=== PATIENT | male | born 1995 ===

== ENCOUNTER 2017-03-04 03:38 | Emergency (ER) | payer MEDICAID ==
[2017-03-04 04:04] VITALS: BP 126/68; PULSE 89; RESP 18; TEMP 97; O2SAT 98
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
== END 2017-03-04 07:05 | disposition home or self-care (01) ==
LOC: H.ER 03:38
DX: S09.90XA Unspecified injury of head, initial encounter (principal); S80.212A Abrasion, left knee, initial encounter; Y04.0XXA Assault by unarmed brawl or fight, initial encounter; Y92.89 Other specified places as the place of occurrence of the external cause